=== PATIENT | male | born 1990 | race Caucasian/White ===

== ENCOUNTER 2021-05-26 14:40 | Emergency (ER) | payer OTHER ==
[~2021-05-26] VITALS: Ht 172.7 cm; Wt 84.0 kg
[2021-05-26 14:49] VITALS: BP 118/75
--- NOTE | 2021-05-26 15:08 | PHYS DOC ---
Past History Past Medical History: No Pertinent History Past Surgical History: Appendectomy Alcohol Use: None Adult General Chief Complaint Chief Complaint: CONGESTION HPI HPI Patient is a 31-year-old male presenting for right ear and sinus pain. Onset of symptoms was approximately 7 days ago without any known inciting event, exposure or trauma. Patient has been using appropriate [id number] treatment such as antihistamines and nasal saline rinses without significant relief. He has been afebrile. 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 Given duration of symptoms, was concerned for development of bacterial sinus infection and recommended patient come in for evaluation of this in addition to his dull right ear pain without discharge Review of Systems Review of Systems Fourteen body systems of review of systems have been reviewed. See HPI for pertinent positives and negative responses, other lombardi all other systems are negative, non-pertinent or non-contributory Allergies Allergies Allergies Coded Allergies Type Severity Reaction Last Updated Verified cefaclor Allergy Unknown 05/26/21 Yes Physical Exam Physical Exam General: Appears well, non toxic, and comfortable Skin: Warm, dry. Normal for ethnicity. HEENT: Atraumatic. PERRLA. Rhinorrhea and congestion with dullness over frontal and maxillary sinuses. Nasal turbinates boggy b/l. Moist mucous membranes. Uvula midline. Maintaining secretions. No phonation changes. Right tympanic membrane bulging and is injected and erythematous with loss of cone of light versus contralateral side Neck: Trachea midline. Normal ROM. No stridor. Respiratory: Normal WOB. CTAB w/o w/r/r. No tachypnea. Cardiovascular: Regular rate and rhythm. Normal peripheral perfusion. Abdomen: Soft. Non tender. No distension. Back: Normal ROM. Musculoskeletal: No swelling or deformity. Neuro: Alert and oriented x 4. MAEE. Lymph: No cervical LAD. Psych: Normal affect and mood. Current Patient Data Vital Signs Vital Signs Date Time Temp Pulse Resp B/P (MAP) Pulse Ox O2 Delivery O2 Flow Rate FiO2 05/26/21 14:49 98.6 79 16 118/75 (89) 98 Room Air EKG EKG [] Radiology/Procedures Radiology/Procedures [] Heart Score C/O Chest Pain: No Risk Factors: Risk Factors: DM, Current or recent (<one month) smoker, HTN, HLP, family history of CAD, obesity. Risk Scores: Risk Factors: DM, Current or recent (<one month) smoker, HTN, HLP, family history of CAD, obesity. Course & Med Decision Making Course & Med Decision Making ABCs unremarkable. I disclosed entirety of ER findings and discussed most likely diagnosis of sinus infection with concomitant right otitis media. Given durati on of symptoms, I disclosed fact that patient with likely improved without any antibiotic administration. Nonetheless, he is requesting antibiotics which I do not feel is that inappropriate. Joint decision made to prescribe Z-Sergio. Continued supportive care practices advised. I stressed need for close outpatient follow-up to review today's ER visit. Strict return precautions were also discussed at length with good understanding by patient. Patient voiced understanding and agreement with the plan. Patient knows to come back for repeat evaluation if concerning signs or symptoms present prior to outpatient follow- up. Hemodynamically stable, ambulatory and well-appearing at time of disposition. Dragon Disclaimer Dragon Disclaimer This electronic medical record was generated, in whole or in part, using a voice recognition dictation system. Departure Departure: Impression: Primary Impression: Sinus infection Additional Impression: Otitis media of right ear Disposition: HOME / SELF CARE / HOMELESS Condition: STABLE Referrals: PCP,UNKNOWN (PCP) Additional Instructions: You were evaluated in the emergency Department today for ear pain and potential sinus infection. Your physical exam suggests that you have an ear infection and likely recovering sinus infection. As such, joint decision was made to start antibiotics You were given a Z-Sergio which is an antibiotic medication with side effects disclosed prior to ER departure. Please take to completion as scheduled. This will address both your sinus issues and your ear infection Be aware it takes 24-36 hours to start feeling better, and often takes a week to clear up. Please follow up with your primary care physician as needed. If you have any concerning signs or symptoms that present prior to outpatient follow-up please do not hesitate to come back for repeat evaluation. It was a pleasure to take care of you and I wish you the best going forward Scripts Azithromycin (AZITHROMYCIN PACKET) 1 Gm Packet 1 PACKET PO ONCE for INFECTION for 1 Day, #1 PACKET 0 Refills dissolve in 2 ounces of water Prov: NATE REA DO 05/26/21 Problem Qualifiers NATE REA DO May 26, 2021 15:08
[2021-05-26] MEDS ORDERED: AZIT1PAC9 PO (15:23)
== END 2021-05-26 15:29 | disposition home or self-care (01) ==
LOC: ER 14:40
DX: J32.9 Chronic sinusitis, unspecified (principal); H66.91 Otitis media, unspecified, right ear
CPT/HCPCS: 99283